=== PATIENT | male | born 1960 | race Caucasian/White ===

== ENCOUNTER 2016-08-30 14:52 | Emergency (ER) | payer MEDICARE ==
--- NOTE | ~2016-08-30 | CR72 ---
[facility]. [facility] A Service of [facility] & [facility] RADIOLOGY TEXT RESULTS PATIENT: ARABELLA RUELAS JR LOCATION: SED : 58 UNIT #: [id number] AGE: [address]: Tonny Faulkner MD SEX: M ORDER DR: [id number] [place] [id number] E MR#: [id number] Acc #: [id number] NAME: ARABELLA RUELAS JR : 1960 SEX: M STUDY DATE/TIME: 08/30/2016 14:49 UNIT: SED ROOM: STUDY DESCRIPTION: CR Chest Single View Portable Attending Physician: Tonny Faulkner M.D. Ordering Physician: Tonny Faulkner M.D. Primary Care Physician: [facility]. MEDICAL IMAGING REPORT This report is preliminary unless electronic signature is present. EXAM Portable chest, 08/30/2016. HISTORY Chest pain and the left shoulder pain since 11:00 a.m. today. Bilateral hand numbness. Benign essential hypertension and diabetes. FINDINGS The heart is normal in size. The lungs are clear. There are no pleural effusions. IMPRESSION No active pulmonary disease. Dictated by... Jaydon Donnelly M.D. THIS IS AN ELECTRONICALLY VERIFIED REPORT Jaydon Donnelly M.D. at 09/01/2016 8:17 AM JEFFREY/norma TD: 08/30/2016 16:38 JOB #: [id number] MEDICAL IMAGING REPORT Page 1 of 1
--- NOTE | ~2016-08-30 | EKG ---
PATIENT: ARABELLA RUELAS UNIT #: [id number] Ventricular Rate: 72 BPM Atrial Rate: 72 BPM P-R Interval: 160 ms QRS Duration: 122 ms Q-T Interval: 410 ms QTC Calculation(Bezet): 448 ms P [place]: 74 degrees Calculated R [place]: 76 degrees Calculated T [place]: 22 degrees Diagnosis Line: Normal sinus rhythm Diagnosis Line: Right bundle branch block Diagnosis Line: Abnormal ECG Diagnosis Line: When compared with ECG of 08-FEB-2015 18:58, Diagnosis Line: Right bundle branch block is now Present Diagnosis Line: Confirmed by LEV SUMMERS MD ([id number]) on Diagnosis Line: 09/09/2016 7:14:08 AM INTERPRETING ISELA NAILS
--- NOTE | ~2016-08-30 | CT71 ---
[facility] A Service of [facility] RADIOLOGY TEXT RESULTS PATIENT: ARABELLA RUELAS JR LOCATION: SED : 58 UNIT #: [id number] AGE: [address]: Tonny Faulkner MD SEX: M ORDER DR: [id number] [place] [id number] E MR#: [id number] Acc #: [id number] NAME: ARABELLA RUELAS JR : 1960 SEX: M STUDY DATE/TIME: 08/30/2016 14:42 UNIT: SED ROOM: STUDY DESCRIPTION: CT Head Wo Contrast Attending Physician: Tonny Faulkner M.D. Ordering Physician: Tonny Faulkner M.D. MEDICAL IMAGING REPORT This report is preliminary unless electronic signature is present. EXAM CT brain without contrast media 08/30/2016 COMPARISON STUDIES None. HISTORY Confusion and bilateral hand numbness and twitching, disorientation beginning at 11:00 a.m. today. TECHNIQUE Axial imaging of the brain was performed without contrast media. Bone and soft tissue windows are reviewed. This CT exam was performed with one or more of the following radiation dose reduction techniques: automatic exposure control, adjustment of mA and/or kV according to patient size, and iterative reconstruction. FINDINGS Ventricular size and configuration is normal. No intra- or extraaxial mass lesions, fluid collections or mass effect are seen. No focal areas of low attenuation or evidence of acute hemorrhage. Bone windows are reviewed. The patient does have left frontal sinus disease. No evidence of subjacent bone erosion or destruction. CONCLUSION 1. Negative noncontrast CT brain. 2. Left frontal sinusitis. [facility] A Service of [facility] RADIOLOGY TEXT RESULTS PATIENT: ARABELLA RUELAS JR LOCATION: SED : 58 UNIT #: [id number] AGE: [address]: Tonny Faulkner MD SEX: M ORDER DR: Dictated by... Abelardo Franks M.D. THIS IS AN ELECTRONICALLY VERIFIED REPORT Abelardo Franks M.D. at 09/02/2016 2:20 PM TIFFANIE/qian TD: 08/30/2016 17:41 JOB #: [id number] MEDICAL IMAGING REPORT Page 1 of 1
[2016-08-30 14:21] LABS: BASOPHIL# 0.1 X10e3 (0-0.3); EOSINOPHIL# 0.3 X10e3 (0-0.7); EOSINOPHIL% 3.5 % (0.0-7.0); HEMATOCRIT 44.9 % (38.0-50.0); HEMOGLOBIN 15.6 gm/dL (13.0-16.0); LYMPHOCYTE# 3.4 X10e3 (1.0-3.5); LYMPHOCYTE% 37.5 % (17.0-45.0); MEAN CELL VOLUME 93.3 FL (83-96); MEAN CORPUSCULAR HEMOGLOBIN 32.4 PG (28-34); MEAN CORPUSCULAR HGB CONC 34.7 g/dL (30-36); MEAN PLATELET VOLUME 7.7 FL (6.5-11.5); MONOCYTE# 0.7 X10e3 (0-1.0); MONOCYTE% 7.8 % (3.0-12.0); NEUTROPHIL# 4.6 X10e3 (1.5-7.1); NEUTROPHIL% 50.2 % (40-75); PLATELET COUNT 255 X10e3 (140-420); RED BLOOD COUNT 4.81 X10e (3.90-5.60); RED CELL DISTRIBUTION WIDTH 12.6 % (11.0-15.5); WHITE BLOOD COUNT 9.2 X10e3 (4.0-10.5)
[2016-08-30 14:23] LABS: DIFF IND NO
[2016-08-30 14:33] LABS: BILIRUBIN, DIRECT 0.1 mg/dL (0.0-0.2); BILIRUBIN,INDIRECT 0.2 mg/dL (0.0-0.9); BILIRUBIN,TOTAL 0.3 mg/dL (0.2-2.0); BUN/CREATININE RATIO 12.85; CALCIUM SERUM 8.9 mg/dL (8.4-10.2); CREATININE SERUM 0.7 mg/dL (0.6-1.4); GLOM FILT RATE Estimated 104.8 mL/min (>60); PROTEIN TOTAL SERUM 7.1 g/dL (6.0-8.3)
[2016-08-30 14:41] LABS: POC - CKMB 1.7 ng/mL (0.0-7.9); POC - MYOGLOBIN 70.4 ng/mL (0.0-169.0); POC - TROPONIN <0.05 ng/mL (<=0.05)
[~2016-08-30 14:52] MED LIST: ACETAMINOPHEN PO; ADVAIR 250-501 EACH; ADVAIR 250-501 EACH IH; ADVAIR 2501 DISK W/D PO; ALBUTEROL17 GM INH; ALLERGY PILL; AZITHROMYCIN250 MG PO; BACLOFEN5 GM; BAYER ASPIRIN325 M1 PO; BENTYL20 MG PO; BENZONATATE PO; BROMPHED; BUPROPION HCL150 M1; CELEBREX PO; CETIRIZINE HCL10 MG PO; CIPRO PO; CLARITIN10 M1 PO; CLEOCIN PO; COMBIVENT U/D3 M4 INH; DOXYCYCLINE PO; ERY-TAB500 MG PO; FAMOTIDINE PO; FISH OIL 1,0001 CAP PO; FLEXERIL PO; GABAPENTIN300 MG PO; GLUCOTROL PO; HCTZ PO; HIGH POTENCY B1 TAB PO; HYCODAN60 ML 5MG/ PO; IBUPROFEN800 MG PO; LEVAQUIN PO; LIPITOR; LIPITOR40 MG PO; LISINOPRIL PO; LOPID600 MG PO; LOPRESSOR PO; MEDROL DOSEPAK4 MG PO; METFORMIN PO; MORPHINE SULFAT15 MG PO; NEURONTIN300 MG PO; OMEPRAZOLE40 M1; OXYCODON-ACETA1 EAC1 PO; OXYGEN; PERCOCET5/325 PO; PREDNISONE PO; PREVACID PO; PRILOSEC PO; PRINIVIL5 MG PO; PROMETHAZINE D118 ML PO; PROVENTIL INH0.5 ML; PROVENTIL INH0.5 ML HHN; SPIRIVA18 MCG; SPIRIVA18 MCG PO; TRAZODONE HCL100 MG PO; ULTRAM PO; VIBRAMYCIN100 M1 PO; VOLTAREN75 MG PO; ZITHROMAX PO; ZITHROMAX500 M1 PO; ZOLOFT PO; ZYRTEC PO
== END 2016-08-30 16:25 | disposition home or self-care (01) ==
LOC: SED 14:52
PROVIDERS: Emergency Medicine
DX: J01.90 Acute sinusitis, unspecified (principal); E11.9 Type 2 diabetes mellitus without complications; F17.200 Nicotine dependence, unspecified, uncomplicated; Z88.0 Allergy status to penicillin; Z88.2 Allergy status to sulfonamides; Z79.84 Long term (current) use of oral hypoglycemic drugs; Z79.899 Other long term (current) drug therapy
CPT/HCPCS: 36415; 70450; 71010; 80048; 80076; 82553; 82947; 83690; 83874; 84484; 85025; 93005; 99284

== ENCOUNTER 2016-09-29 10:50 | Emergency (ER) | payer MEDICARE ==
--- NOTE | ~2016-09-29 | CT114 ---
[facility] A Service of [facility] & [facility] RADIOLOGY TEXT RESULTS PATIENT: ARABELLA RUELAS JR LOCATION: [facility] : 58 UNIT #: [id number] AGE: [address]: Waleska Roca MD SEX: M ORDER DR: [id number] [facility] [address] [place], [place] [address] [id number] E MR#: [id number] [facility] #: [id number] NAME: ARABELLA RUELAS JR : 1960 SEX: M STUDY DATE/TIME: 09/29/2016 14:02 UNIT: [facility] ROOM: STUDY DESCRIPTION: CT Soft Tissue Neck W Cont Attending Physician: Waleska Roca M.D. Ordering Physician: Waleska Roca M.D. Primary Care Physician: [facility] MEDICAL IMAGING REPORT This report is preliminary unless electronic signature is present EXAM CT soft tissue neck CT 09/29 HISTORY Left side facial swelling that started 09/26/2016. Difficulty swallowing and opening the patient's mouth that started Tuesday of this week. Pain is currently 10 out of 10. TECHNIQUE Axial images were obtained through the neck following IV contrast administration. Multiplanar reformats were obtained. No comparison. The CT exam was performed with one or more of the following radiation dose reduction techniques: automatic exposure control, adjustment of mA and/or kV according to patient size, and iterative reconstruction. FINDINGS The exam is abnormal. There is a left side tonsillar abscess with diffuse edema in the adjacent soft tissues. The abscess measures at least 1.3 x 1.0 cm in greatest axial dimension. It covers a craniocaudal length of at least 4.4 cm. However, there is soft tissue swelling with phlegmonous change suspected which extends down the left side of the pharyngeal mucosal space. This exerts mass effect and causes narrowing of the airway. Soft tissue change completely obliterates the left piriform sinus. Changes extend down to the level of the cords. ENT consult is recommended. There is minimal haziness of the adjacent fat in the pharyngeal space. There are some reactive appearing lymph nodes predominantly on the left side of the neck. The subglottic structures are normal. Thyroid gland is normal. Salivary glands are normal. The floor of the mouth is within normal limits. There is degenerative disease in the cervical spine, most pronounced at C4-5. Visualized upper lung zones are clear. There is some chronic mucosal thickening in the left maxillary [facility] A Service of [facility] RADIOLOGY TEXT RESULTS PATIENT: ARABELLA RUELAS JR LOCATION: [facility] : 58 UNIT #: [id number] AGE: [address]: Waleska Roca MD SEX: M ORDER DR: and frontal sinuses. IMPRESSION Abnormal examination. There is left side tonsillar abscess. Inflammation/phlegmon/edema extends down the left side of the pharyngeal mucosal space. This causes narrowing of the airway at the affected levels. There is obliteration of the left piriform sinus. The abnormality extends down to the level of the true cords on the left side. ENT consult is recommended. Be cautious of airway management in this patient. Would recommend a follow up contrast enhanced CT after any therapy is completed to exclude any underlying tumor. The rest of the neck is remarkable for some mild reactive appearing adenopathy, predominantly on the left. Dictated by... Guicho Krishnan Jr., M.D. THIS IS AN ELECTRONICALLY VERIFIED REPORT Guicho Krishnan Jr., M.D. at 09/29/2016 4:58 PM PANCHO/brooklyn TD: 09/29/2016 14:53 JOB #: [id number] MEDICAL IMAGING REPORT Page 1 of 1 COPY
[2016-09-29 12:31] LABS: BASOPHIL% 0.2 % (0-2.5); EOSINOPHIL# 0.1 X10e3 (0-0.7); EOSINOPHIL% 0.3 % (0.0-7.0); HEMATOCRIT 44.6 % (38.0-50.0); HEMOGLOBIN 14.8 gm/dL (13.0-16.0); LYMPHOCYTE# 2.2 X10e3 (1.0-3.5); LYMPHOCYTE% 11.6 % (17.0-45.0); MEAN CELL VOLUME 94.2 FL (83-96); MEAN CORPUSCULAR HEMOGLOBIN 31.2 PG (28-34); MEAN CORPUSCULAR HGB CONC 33.2 g/dL (30-36); MEAN PLATELET VOLUME 7.8 FL (6.5-11.5); MONOCYTE# 2.1 X10e3 (0-1.0); MONOCYTE% 11.4 % (3.0-12.0); NEUTROPHIL# 14.2 X10e3 (1.5-7.1); NEUTROPHIL% 76.5 % (40-75); PLATELET COUNT 217 X10e3 (140-420); RED BLOOD COUNT 4.74 X10e (3.90-5.60); RED CELL DISTRIBUTION WIDTH 12.4 % (11.0-15.5); WHITE BLOOD COUNT 18.5 X10e3 (4.0-10.5)
[2016-09-29 12:32] LABS: DIFF IND YES
[2016-09-29 12:45] LABS: PARTIAL THROMBOPLASTIN TIME 26.7 SECONDS (23.5-31.3); PROTHROMBIN TIME (PATIENT) 10.1 SECONDS (9.6-11.5)
[2016-09-29 12:55] LABS: PLATELET ESTIMATE NORMAL (NORMAL)
[2016-09-29 13:10] LABS: ALBUMIN SERUM 3.8 g/dL (3.5-5.0); BILIRUBIN, DIRECT 0.2 mg/dL (0.0-0.2); BILIRUBIN,TOTAL 1.2 mg/dL (0.2-2.0); BUN/CREATININE RATIO 13.75; CREATININE SERUM 0.8 mg/dL (0.6-1.4); GLOM FILT RATE Estimated 99.2 mL/min (>60); PROTEIN TOTAL SERUM 7.1 g/dL (6.0-8.3)
== END 2016-09-29 15:50 | disposition short-term general hospital (02) ==
LOC: CED 10:50
PROVIDERS: Emergency Medicine
DX: J36 Peritonsillar abscess (principal); I10 Essential (primary) hypertension; E11.9 Type 2 diabetes mellitus without complications; J44.9 Chronic obstructive pulmonary disease, unspecified; F17.210 Nicotine dependence, cigarettes, uncomplicated; Z79.82 Long term (current) use of aspirin; Z79.899 Other long term (current) drug therapy
CPT/HCPCS: 36415; 70491; 80048; 80076; 85025; 85610; 85730; 96365; 96375; 99284; J2270; Q9967

== ENCOUNTER 2016-12-04 14:33 | Emergency (ER) | payer MEDICARE ==
[~2016-12-04] VITALS: Ht 177.8 cm; Wt 74.8 kg
--- NOTE | ~2016-12-04 | CR63 ---
[facility] A Service of [facility] & [facility] RADIOLOGY TEXT RESULTS PATIENT: ARABELLA RUELAS JR LOCATION: SED : 58 UNIT #: [id number] AGE: [address]: Leonel Medrano MD SEX: M ORDER DR: [id number] [place] [id number] E MR#: [id number] Acc #: [id number] NAME: ARABELLA RUELAS JR : 1960 SEX: M STUDY DATE/TIME: 12/04/2016 15:32 UNIT: SED ROOM: STUDY DESCRIPTION: CR Chest 2 View Attending Physician: Leonel Medrano M.D. Ordering Physician: Leonel Medrano M.D. Primary Care Physician: [facility]. MEDICAL IMAGING REPORT This report is preliminary unless electronic signature is present. EXAM Two-view chest. INDICATIONS Shortness of air for 2-3 months. Meningitis. FINDINGS PA and lateral views of the chest compared to 08/30/2016. Heart and mediastinal contours are unchanged. There is some chronic interstitial opacities in both lungs. No pleural effusion. IMPRESSION No acute cardiopulmonary findings. Mild chronic interstitial changes. Dictated by... Arnulfo Vivar M.D. THIS IS AN ELECTRONICALLY VERIFIED REPORT Arnulfo Vivar M.D. at 12/05/2016 5:14 PM CAITLYN/miryam TD: 12/04/2016 21:58 JOB #: [id number] MEDICAL IMAGING REPORT Page 1 of 1
--- NOTE | ~2016-12-04 | CR195 ---
[facility]. [facility] A Service of [facility] & [facility] RADIOLOGY TEXT RESULTS PATIENT: ARABELLA RUELAS JR LOCATION: SED : 58 UNIT #: [id number] AGE: [address]: Leonel Medrano MD SEX: M ORDER DR: [id number] [place] [id number] E MR#: [id number] Acc #: [id number] NAME: ARABELLA RUELAS JR : 1960 SEX: M STUDY DATE/TIME: 12/04/2016 15:32 UNIT: SED ROOM: STUDY DESCRIPTION: CR Neck Soft Tissue Attending Physician: Leonel Medrano M.D. Ordering Physician: Leonel Medrano M.D. Primary Care Physician: [facility], [facility]. MEDICAL IMAGING REPORT This report is preliminary unless electronic signature is present. EXAM Neck soft tissue. INDICATIONS Sore throat. Laryngitis. FINDINGS Two views of the neck soft tissue compared to CT neck dated 09/29/2016. The nasopharynx, oropharynx, and hypopharynx are within normal limits. Laryngeal soft tissues are symmetric. Prevertebral soft tissues are normal. There is mild degenerative changes in the cervical spine. No foreign body. IMPRESSION Negative neck soft tissue. Dictated by... Arnulfo Vivar M.D. THIS IS AN ELECTRONICALLY VERIFIED REPORT Arnulfo Vivar M.D. at 12/05/2016 5:14 PM CAITLYN/miryam TD: 12/04/2016 22:14 JOB #: [id number] MEDICAL IMAGING REPORT Page 1 of 1
[2016-12-04] MEDS ORDERED: DOXYCYCLINE HY100 M3 PO (16:55)
[2016-12-04] MEDS ORDERED: BROMFED DM COU118 ML PO (16:56)
[2016-12-04] MEDS ORDERED: ALBUTEROL17 GM INH (16:56)
== END 2016-12-04 16:56 | disposition home or self-care (01) ==
LOC: SED 14:33
DX: J40 Bronchitis, not specified as acute or chronic (principal); J44.9 Chronic obstructive pulmonary disease, unspecified; F17.200 Nicotine dependence, unspecified, uncomplicated; Z88.0 Allergy status to penicillin; Z88.2 Allergy status to sulfonamides; Z79.84 Long term (current) use of oral hypoglycemic drugs; Z79.82 Long term (current) use of aspirin; Z79.899 Other long term (current) drug therapy
CPT/HCPCS: 70360; 71020; 82947; 87651; 94640; 99283